=== PATIENT | female | born 1995 | race African-American/Black ===

== ENCOUNTER 2016-09-21 11:28 | Emergency (ER) | payer SELFPAY ==
[~2016-09-21] VITALS: Ht 152.4 cm; Wt 54.4 kg
[2016-09-21] MEDS ORDERED: IV NORMAL SALINE 1000ML BAG 1,000 ML IV SCH (12:34)
[2016-09-21 13:29] LABS: BASO % 0 % (0-3); EOS % 1 % (0-3); HEMATOCRIT 35.8 % (36.0-47.0); HEMOGLOBIN 11.5 g/dL (12.0-15.5); LYMPH # 1.7 x10^3/uL (1.0-4.8); LYMPH % 27 % (24-48); MEAN CORPUSCULAR HEMOGLOBIN 26 pg (25-35); MEAN CORPUSCULAR HGB CONC 32 g/dL (31-37); MEAN CORPUSCULAR VOLUME 80 fL (79-100); MONO % 6 % (0-9); NEUT % 66 % (31-73); PLATELET COUNT 239 x10^3/uL (140-400); RED BLOOD COUNT 4.51 x10^6/uL (3.50-5.40); RED CELL DISTRIBUTION WIDTH 15.8 % (11.5-14.5); WHITE BLOOD COUNT 6.2 x10^3/uL (4.0-11.0)
[2016-09-21 13:32] LABS: BILIRUBIN,URINE NEGATIVE (NEG); GLUCOSE,URINE NEGATIVE (NEG); NITRITE,URINE NEGATIVE (NEG); PROTEIN,URINE NEGATIVE (NEG-TRACE)
[2016-09-21 13:34] LABS: CALCIUM 8.6 mg/dL (8.5-10.1); CREATININE 0.4 mg/dL (0.6-1.0); GFR 243.8; POTASSIUM 3.5 mmol/L (3.5-5.1)
[2016-09-21 13:39] LABS: ALBUMIN 3.2 g/dL (3.4-5.0); ALBUMIN/GLOBULIN RATIO 0.7 (1.0-1.7); TOTAL BILIRUBIN 0.4 mg/dL (0.2-1.0); TOTAL PROTEIN 7.6 g/dL (6.4-8.2)
--- NOTE | 2016-09-21 13:44 | RAD ---
Indication: Vaginal bleeding. The uterus measures 9.8 x 7.7 x 6.0 cm. There is a live intrauterine . measurements are consistent with approximately 12 weeks 2 day gestation. heart rate was recorded at 160 bpm. The survey is limited due to early gestation. No perigestational sac hemorrhage is detected. Adnexa are unremarkable. Impression: Single live IUP 12 weeks 2 days gestational age. Estimated date of confinement sonographically is 04/03/2017. No complicating features are detected.
[2016-09-21 13:46] LABS: NEG OBC SER NEG; POS OBC SER POS
[2016-09-21 14:06] LABS: BACTERIA,URINE FEW /HPF (0-FEW); RBC,URINE 0 /HPF (0-2); SQUAMOUS EPITHELIAL CELL,UR FEW /LPF; WBC,URINE OCC /HPF (0-4)
[2016-09-21 14:10] VITALS: BP 105/55
[2016-09-21] MEDS ORDERED: PNV1TABL34 PO (14:13)
--- NOTE | 2016-09-21 14:13 | PHYS DOC ---
Past Medical History Past Medical History: No Pertinent History Past Surgical History: No Surgical History Alcohol Use: None Drug Use: None Adult General Chief Complaint Chief Complaint: ABDOMINAL PAIN IN HPI HPI Patient is a 21 year old female who states she had a positive home test but has had no care. . LMP was in July. She was fine yesterday , but when she woke up this morning her stomach was bothering her, she had pain throughout her stomach in the upper and lower stomach and also in her back. She was nauseated and vomited. She thought she had some vaginal bleeding but it was not heavy. She has not had any vaginal bleeding since becoming . Patient has no chronic medical problems. She is feeling a little better at this time. Review of Systems Review of Systems Constitutional: Denies fever or chills [] Eyes: Denies change in visual acuity, redness, or eye pain [] HENT: Denies nasal congestion or sore throat [] Respiratory: Denies cough or shortness of breath [] Cardiovascular: Denies chest pain GI: As in history of present illness : Denies dysuria or hematuria [] Musculoskeletal: Denies back pain or joint pain [] Integument: Denies rash or skin lesions [] Neurologic: Denies headache, focal weakness or sensory changes [] Current Medications Current Medications Current Medications Medications (Trade) Dose Ordered Sig/Marc Start Time Stop Time Status Last Admin Dose Admin Sodium Chloride 1,000 ml @ 1,000 mls/hr Q1H 09/21/16 12:34 09/21/16 13:33 DC 09/21/16 13:07 1,000 MLS/HR Allergies Allergies Allergies Coded Allergies Type Severity Reaction Last Updated Verified No Known Drug Allergies 09/21/16 No Physical Exam Physical Exam Constitutional: Well developed, well nourished, no acute distress, non-toxic appearance. [] HENT: Normocephalic, atraumatic, bilateral external ears normal, nose normal. [] Eyes: conjunctiva normal, no discharge. [] Neck: Normal range of motion, no stridor. [] Cardiovascular:Heart rate regular rhythm, no murmur [] Lungs & Thorax: Bilateral breath sounds clear to auscultation [] Abdomen: Bowel sounds normal, soft, no tenderness, no masses, no pulsatile masses. Abdomen entirely benign. Skin: Warm, dry, no erythema, no rash. [] Extremities: No tenderness, no cyanosis, no clubbing, ROM intact, no edema. [] Neurologic: Alert and oriented X 3, normal motor function, normal sensory function, no focal deficits noted. [] Current Patient Data Vital Signs Vital Signs Date Time Temp Pulse Resp B/P (MAP) Pulse Ox O2 Delivery O2 Flow Rate FiO2 09/21/16 14:10 73 16 105/55 (72) 100 Room Air 09/21/16 11:40 98.2 98.2 Lab Values Laboratory Tests Test 09/21/16 11:33 09/21/16 13:00 Urine Collection Type Void Urine Color Yellow Urine Clarity Clear Urine pH 8.0 Urine Specific [place] 1.010 Urine Protein Negative mg/dL (NEG-TRACE) Urine Glucose (UA) Negative mg/dL (NEG) Urine Ketones (Stick) Negative mg/dL (NEG) Urine Blood Trace (NEG) Urine Nitrite Negative (NEG) Urine Bilirubin Negative (NEG) Urine Urobilinogen Dipstick 1.0 mg/dL (0.2 mg/dL) Urine Leukocyte Esterase Negative (NEG) Urine RBC 0 /HPF (0-2) Urine WBC Occ /HPF (0-4) Urine Squamous Epithelial Cells Few /LPF Urine Bacteria Few /HPF (0-FEW) Urine Mucus Mod /LPF White Blood Count 6.2 x10^3/uL (4.0-11.0) Red Blood Count 4.51 x10^6/uL (3.50-5.40) Hemoglobin 11.5 g/dL (12.0-15.5) L Hematocrit 35.8 % (36.0-47.0) L Mean Corpuscular Volume 80 fL (79-100) Mean Corpuscular Hemoglobin 26 pg (25-35) Mean Corpuscular Hemoglobin Concent 32 g/dL (31-37) Red Cell Distribution Width 15.8 % (11.5-14.5) H Platelet Count 239 x10^3/uL (140-400) Neutrophils (%) (Auto) 66 % (31-73) Lymphocytes (%) (Auto) 27 % (24-48) Monocytes (%) (Auto) 6 % (0-9) Eosinophils (%) (Auto) 1 % (0-3) Basophils (%) (Auto) 0 % (0-3) Neutrophils # (Auto) 4.1 x10^3uL (1.8-7.7) Lymphocytes # (Auto) 1.7 x10^3/uL (1.0-4.8) Monocytes # (Auto) 0.4 x10^3/uL (0.0-1.1) Eosinophils # (Auto) 0.1 x10^3/uL (0.0-0.7) Basophils # (Auto) 0.0 x10^3/uL (0.0-0.2) Sodium Level 137 mmol/L (136-145) Potassium Level 3.5 mmol/L (3.5-5.1) Chloride Level 102 mmol/L (98-107) Carbon Dioxide Level 26 mmol/L (21-32) Anion Gap 9 (6-14) Blood Urea Nitrogen 5 mg/dL (7-20) L Creatinine 0.4 mg/dL (0.6-1.0) L Estimated GFR (Cockcroft-Gault) 243.8 BUN/Creatinine Ratio 13 (6-20) Glucose Level 79 mg/dL (70-99) Calcium Level 8.6 mg/dL (8.5-10.1) Total Bilirubin 0.4 mg/dL (0.2-1.0) Aspartate Amino Transferase (AST) 19 U/L (15-37) Alanine Aminotransferase (ALT) 20 U/L (14-59) Alkaline Phosphatase 63 U/L (46-116) Total Protein 7.6 g/dL (6.4-8.2) Albumin 3.2 g/dL (3.4-5.0) L Albumin/Globulin Ratio 0.7 (1.0-1.7) L Lipase 80 U/L (73-393) Serum Test, Qualitative Positive (NEG) Laboratory Tests 09/21/16 13:00 Laboratory Tests 09/21/16 13:00 EKG EKG [] Radiology/Procedures Radiology/Procedures REASON: preg, bleeding PROCEDURE: OB < 14 WKS Indication: Vaginal bleeding. The uterus measures 9.8 x 7.7 x 6.0 cm. There is a live intrauterine . measurements are consistent with approximately 12 weeks 2 day gestation. heart rate was recorded at 160 bpm. The survey is limited due to early gestation. No perigestational sac hemorrhage is detected. Adnexa are unremarkable. Impression: Single live IUP 12 weeks 2 days gestational age. Estimated date of confinement sonographically is 04/03/2017. No complicating features are detected. DICTATED and SIGNED BY: SUSHANT MCKEE MD DATE: 09/21/16 7796 [] Course & Med Decision Making Course & Med Decision Making Pertinent Labs and Imaging studies reviewed. (See chart for details) Patient remained stable in the ED. Labs unrevealing as to cause of abdominal complaints. Ultrasound read by the radiologist is normal with a IUP 12 weeks 2 days. We discussed vitamins, discussed OB follow-up. Patient is stable for discharge. [] Dragon Disclaimer Dragon Disclaimer This electronic medical record was generated, in whole or in part, using a voice recognition dictation system. Departure Departure Impression: Primary Impression: First trimester Additional Impression: Nausea/vomiting in Disposition: HOME, SELF-CARE Condition: STABLE Referrals: NO PCP (PCP) CRESCENCIO MCKEON MD Patient Instructions: Abdominal Pain During , [id number] Additional Instructions: Today, ultrasound showed that your baby appears to be healthy and you are 12 weeks . Your estimated due date based on measurements from your ultrasound is April 03. It's very important that you get care by a specialist to manages called environmental department manager. Call for appointment with Dr. Mckeon or your own recommended environmental department manager. Drink plenty of fluids. Take a multivitamin daily. Scripts Pnv With Ca,No.72/Iron,Carb/Fa ( PLUS IRON TABLET) 1 Each Tablet 1 TAB PO DAILY, #30 TAB 0 Refills Prov: MANDEEP HART MD 09/21/16 Problem Qualifiers MANDEEP HART MD Sep 21, 2016 14:13
== END 2016-09-21 14:25 | disposition home or self-care (01) ==
LOC: ER 11:28
DX: O21.0 Mild hyperemesis gravidarum (principal); O26.891 Other specified pregnancy related conditions, first trimester; R10.10 Upper abdominal pain, unspecified; R10.30 Lower abdominal pain, unspecified; Z3A.12 12 weeks gestation of pregnancy
CPT/HCPCS: 36415; 76801; 80053; 81001; 83690; 84703; 85027; 86900; 86901; 96360; 99285; J7030